=== PATIENT | female | born 1960 | race African-American/Black ===

== ENCOUNTER 2018-05-25 09:16 | Inpatient (IN) | payer MEDICARE, OTHER ==
[~2018-05-25] VITALS: Ht 170.2 cm; Wt 126.2 kg
[~2018-05-25 09:16] MED LIST: ADV500 IH; ALBU8.5H8 IH; AMIT50TA3 PO; ASPI-989 PO; ATOR40TA28 PO; FLUT16H NASAL; FURO80 PO; INSLAN SQ; INSU100I15 SQ; ISOS30TA6 PO; KDUR20 PO; LIDOP TD; LOSA25TA41 PO; METF-960 PO; METH-372 PO; NITR.4 BU; PRAS10TA6 PO; PROM25 PO; SULF-168 PO; TIOT185 IH; [UNRECOGNIZED DRUG - CODE] VG
[2018-05-25] MEDS ORDERED: SODIUM CHLORIDE 0.9% 100 ML ONE ×2 (10:10→14:32)
[2018-05-25] MEDS ORDERED: IOVERSOL 350 MG/ML 150 ML VIAL ONE ×2 (10:10→14:31)
[2018-05-25 10:17] LABS: GLUCOSE,POINT OF CARE 477 MG/DL (70-110)
[2018-05-25 11:32] LABS: BASOPHILS % (AUTO) 0.4 % (0.0-2.0); EOSINOPHILS % (AUTO) 0.8 % (1.0-6.0); HEMATOCRIT 35.9 % (36-46); HEMOGLOBIN 11.6 g/dL (12.0-16.0); LYMPHOCYTES # (AUTO) 2.6 K/uL (1.0-4.8); LYMPHOCYTES % (AUTO) 26.7 % (22.0-44.0); MEAN CORPUSCULAR HEMOGLOBIN 22.3 pg (26.0-34.0); MEAN CORPUSCULAR HGB CONC 32.3 G/dL (31.0-37.0); MEAN CORPUSCULAR VOLUME 69 fL (80-100); MONOCYTES # (AUTO) 0.4 K/uL (0.1-1.0); MONOCYTES % (AUTO) 4.5 % (2.0-9.0); NEUTROPHILS # (AUTO) 6.6 K/uL (1.8-7.7); NEUTROPHILS % (AUTO) 67.6 % (40.0-70.0); PLATELET COUNT (AUTO) 284 K/uL (150-450); RED BLOOD CELL COUNT(AUTO) 5.19 MIL/uL (4.00-5.20); RED CELL DISTRIBUTION WIDTH 20.6 % (11.5-14.5)
[2018-05-25 11:47] LABS: INR 0.9 (0.9-1.1); PROTHROMBIN TIME 9.7 SEC (9.4-11.6)
[2018-05-25 11:59] LABS: B-TYPE NATRIURETIC PEPTIDE 10 pg/mL (0-100)
[2018-05-25 12:19] LABS: ALANINE AMINOTRANSFERASE 22 U/L (12-78); ALKALINE PHOSPHATASE 168 U/L (46-116); ANION GAP 11 mmol/L (8-16); ASPARTATE AMINOTRANSFERASE 16 U/L (15-37); BILIRUBIN,TOTAL 0.3 mg/dL (0.1-1.0); CALCIUM, TOTAL 9.8 mg/dL (8.8-10.5); CARBON DIOXIDE 24 mmol/L (22-29); CHLORIDE 100 mmol/L (98-107); CREATINE KINASE, TOTAL ONLY 66 U/L (26-192); CREATININE 1.05 mg/dL (0.60-1.30); GLOMERULAR FILTR. RATE CALC > 60 mL/min (>60); POTASSIUM 4.6 mmol/L (3.5-5.1); SODIUM SERUM 135 mmol/L (136-145); TOTAL PROTEIN, SERUM 7.5 g/dL (6.4-8.2); UREA NITROGEN, BLOOD 16 mg/dL (7-18)
[2018-05-25 12:23] LABS: GLUCOSE,RANDOM 452 mg/dL (70-110)
[2018-05-25] MEDS ORDERED: INSULIN REGULAR, HUMAN 100 UNITS/ML IVP ONE (12:45)
[2018-05-25] MEDS ORDERED: SODIUM CHLORIDE 0.9% 1,000 ML IV ONE (12:45)
[2018-05-25] MEDS ORDERED: 0.9% SODIUM CHLORIDE 10 ML SYRINGE IVP PRN (13:45)
[2018-05-25] MEDS ORDERED: INSULIN REGULAR, HUMAN 100 UNITS/ML SQ ONE (13:45)
[2018-05-25] MEDS ORDERED: ACETAMINOPHEN 325 MG TABLET PO PRN ×2 (13:45→15:45)
[2018-05-25] MEDS ORDERED: ONDANSETRON HCL 4 MG/2 ML VIAL IVP PRN ×2 (13:45→15:45)
[2018-05-25] MEDS ORDERED: ZOLPIDEM TARTRATE 5 MG TABLET PO PRN (15:45)
[2018-05-25] MEDS ORDERED: DEXTROSE 50%-WATER 25 GM/50 ML SYRINGE IVP PRN (15:45)
[2018-05-25] MEDS ORDERED: BISACODYL 10 MG RECTAL RECTAL SUPPOSITORY PR PRN (15:45)
[2018-05-25] MEDS ORDERED: MAGNESIUM HYDROXIDE SUSPENSION 30 ML UDCUP PO PRN (15:45)
[2018-05-25 15:50] LABS: GLUCOSE,POINT OF CARE 366 MG/DL (70-110)
[2018-05-25 15:50] LABS: GLUCOSE,POINT OF CARE 301 MG/DL (70-110)
[2018-05-25] MEDS ORDERED: ALBUTEROL SULFATE 2.5 MG/0.5 ML NEB SOLUTION NEB PRN (16:00)
[2018-05-25] MEDS ORDERED: IPRATROPIUM BROMIDE 0.5 MG/2.5 ML NEB SOLUTION NEB PRN (16:00)
[2018-05-25 16:13] LABS: BASOPHILS % (AUTO) 0.3 % (0.0-2.0); EOSINOPHILS % (AUTO) 1.5 % (1.0-6.0); HEMATOCRIT 34.4 % (36-46); HEMOGLOBIN 10.8 g/dL (12.0-16.0); LYMPHOCYTES # (AUTO) 2.6 K/uL (1.0-4.8); LYMPHOCYTES % (AUTO) 30.9 % (22.0-44.0); MEAN CORPUSCULAR HEMOGLOBIN 21.5 pg (26.0-34.0); MEAN CORPUSCULAR HGB CONC 31.5 G/dL (31.0-37.0); MEAN CORPUSCULAR VOLUME 68 fL (80-100); MONOCYTES # (AUTO) 0.4 K/uL (0.1-1.0); MONOCYTES % (AUTO) 5.2 % (2.0-9.0); NEUTROPHILS # (AUTO) 5.3 K/uL (1.8-7.7); NEUTROPHILS % (AUTO) 62.1 % (40.0-70.0); PLATELET COUNT (AUTO) 294 K/uL (150-450); RED BLOOD CELL COUNT(AUTO) 5.05 MIL/uL (4.00-5.20); RED CELL DISTRIBUTION WIDTH 20.2 % (11.5-14.5)
[2018-05-25 16:37] LABS: PLATELET MORPHOLOGY COMMENT NORMAL
[2018-05-25 17:30] LABS: GLUCOSE,POINT OF CARE 251 MG/DL (70-110)
[2018-05-25 18:07] VITALS: BP 122/59
[2018-05-25] MEDS: INSULIN LISPRO 100 UNITS/ML SQ PRN ×2 (18:09→23:22)
[2018-05-25 19:25] VITALS: BP 146/77
[2018-05-25] MEDS: DOCUSATE SODIUM 100 MG CAPSULE PO SCH (20:09)
[2018-05-25] MEDS: FUROSEMIDE 80 MG TABLET PO SCH (20:09)
[2018-05-25] MEDS: FAMOTIDINE 20 MG TABLET PO SCH (20:09)
[2018-05-25] MEDS: AMITRIPTYLINE HCL 50 MG TABLET PO SCH (20:09)
[2018-05-25] MEDS ORDERED: INSULIN GLARGINE,HUM.REC.ANLOG 100 UNITS/ML SQ SCH (21:00)
[2018-05-25] MEDS ORDERED: ENOXAPARIN SODIUM 80 MG/0.8 ML PF SYRINGE SQ SCH ×2 (21:00)
[2018-05-25] MEDS ORDERED: HEPARIN SODIUM 25000 UNITS/D5W 250 ML IV PRN (21:38)
[2018-05-25] MEDS ORDERED: HEPARIN SODIUM,PORCINE 5,000 UNITS/ML VIAL IVP PRN ×2 (21:45)
[2018-05-25] MEDS ORDERED: DiphenhydrAMINE HCL 50 MG/ML VIAL IVP ONE (21:45)
[2018-05-25] MEDS: OxyCODONE HCL/ACETAMINOPHEN 5-325 MG TABLET PO PRN (23:20)
[2018-05-25 23:52] VITALS: BP 127/56
[2018-05-26 02:49] LABS: GLUCOMETER DEV NAME(LOC) 5S.1; GLUCOSE,POINT OF CARE 491 MG/DL (70-110)
[2018-05-26 04:02] VITALS: BP 133/73
[2018-05-26] MEDS ORDERED: INSULIN LISPRO 100 UNITS/ML SQ ONE (06:15)
[2018-05-26] MEDS ORDERED: DEXTROSE 50%-WATER 25 GM/50 ML SYRINGE IVP PRN (06:15)
[2018-05-26 06:32] LABS: BASOPHILS % (AUTO) 1.1 % (0.0-2.0); EOSINOPHILS % (AUTO) 1.7 % (1.0-6.0); HEMATOCRIT 34.6 % (36-46); HEMOGLOBIN 10.9 g/dL (12.0-16.0); LYMPHOCYTES # (AUTO) 2.2 K/uL (1.0-4.8); LYMPHOCYTES % (AUTO) 30.3 % (22.0-44.0); MEAN CORPUSCULAR HEMOGLOBIN 21.5 pg (26.0-34.0); MEAN CORPUSCULAR HGB CONC 31.3 G/dL (31.0-37.0); MEAN CORPUSCULAR VOLUME 69 fL (80-100); MONOCYTES # (AUTO) 0.3 K/uL (0.1-1.0); MONOCYTES % (AUTO) 4.4 % (2.0-9.0); NEUTROPHILS # (AUTO) 4.6 K/uL (1.8-7.7); NEUTROPHILS % (AUTO) 62.5 % (40.0-70.0); PLATELET COUNT (AUTO) 295 K/uL (150-450); RED BLOOD CELL COUNT(AUTO) 5.06 MIL/uL (4.00-5.20); RED CELL DISTRIBUTION WIDTH 20.1 % (11.5-14.5)
[2018-05-26 07:24] LABS: ALANINE AMINOTRANSFERASE 24 U/L (12-78); ALBUMIN 2.9 g/dL (3.4-5.0); ALKALINE PHOSPHATASE 164 U/L (46-116); ANION GAP 8 mmol/L (8-16); ASPARTATE AMINOTRANSFERASE 19 U/L (15-37); BILIRUBIN,TOTAL 0.3 mg/dL (0.1-1.0); CALCIUM, TOTAL 9.1 mg/dL (8.8-10.5); CARBON DIOXIDE 27 mmol/L (22-29); CHLORIDE 97 mmol/L (98-107); GLOMERULAR FILTR. RATE CALC > 60 mL/min (>60); POTASSIUM 3.9 mmol/L (3.5-5.1); SODIUM SERUM 132 mmol/L (136-145); TOTAL PROTEIN, SERUM 7.1 g/dL (6.4-8.2); UREA NITROGEN, BLOOD 15 mg/dL (7-18)
[2018-05-26 07:31] LABS: GLUCOSE,RANDOM 475 mg/dL (70-110)
[2018-05-26 07:54] VITALS: BP 117/60
[2018-05-26 07:55] LABS: GLUCOMETER DEV NAME(LOC) 5S.1; GLUCOSE,POINT OF CARE 478 MG/DL (70-110)
[2018-05-26] MEDS: FUROSEMIDE 80 MG TABLET PO SCH ×2 (08:13→21:50)
[2018-05-26] MEDS: DOCUSATE SODIUM 100 MG CAPSULE PO SCH ×2 (08:13→21:50)
[2018-05-26] MEDS: ISOSORBIDE MONONITRATE 30 MG ER TABLET PO SCH (08:13)
[2018-05-26] MEDS: AMITRIPTYLINE HCL 50 MG TABLET PO SCH ×2 (08:13→21:50)
[2018-05-26] MEDS: ASPIRIN 325 MG TABLET PO SCH (08:13)
[2018-05-26] MEDS: ATORVASTATIN CALCIUM 40 MG TABLET PO SCH (08:13)
[2018-05-26] MEDS: OxyCODONE HCL/ACETAMINOPHEN 5-325 MG TABLET PO PRN ×2 (08:13→17:05)
[2018-05-26] MEDS: FAMOTIDINE 20 MG TABLET PO SCH ×2 (08:14→21:50)
[2018-05-26] MEDS: PRASUGREL HCL 10 MG TABLET PO SCH (08:14)
[2018-05-26] MEDS: LOSARTAN POTASSIUM 25 MG TABLET PO SCH (08:14)
[2018-05-26 11:24] VITALS: BP 110/54
[2018-05-26] MEDS: INSULIN LISPRO 100 UNITS/ML SQ PRN ×3 (11:38→21:52)
[2018-05-26] MEDS: APIXABAN 5 MG TABLET PO SCH ×2 (12:05→21:50)
[2018-05-26 14:19] LABS: GLUCOMETER DEV NAME(LOC) 5S.1; GLUCOSE,POINT OF CARE 431 MG/DL (70-110)
[2018-05-26 16:04] VITALS: BP 118/68
[2018-05-26 20:29] LABS: GLUCOMETER DEV NAME(LOC) 5S.1; GLUCOSE,POINT OF CARE 474 MG/DL (70-110)
[2018-05-26 20:36] VITALS: BP 119/65
[2018-05-26] MEDS: INSULIN GLARGINE,HUM.REC.ANLOG 100 UNITS/ML SQ SCH (21:51)
[2018-05-26 22:38] LABS: GLUCOMETER DEV NAME(LOC) 5S.2; GLUCOSE,POINT OF CARE 420 MG/DL (70-110)
[2018-05-27 00:08] VITALS: BP 124/69
[2018-05-27] MEDS: OxyCODONE HCL/ACETAMINOPHEN 5-325 MG TABLET PO PRN ×3 (01:06→16:24)
[2018-05-27 04:06] VITALS: BP 109/67
[2018-05-27] MEDS: INSULIN LISPRO 100 UNITS/ML SQ PRN (05:57)
[2018-05-27 07:47] VITALS: BP 125/72
[2018-05-27 07:59] LABS: GLUCOMETER DEV NAME(LOC) 5S.2; GLUCOSE,POINT OF CARE 370 MG/DL (70-110)
[2018-05-27] MEDS: ATORVASTATIN CALCIUM 40 MG TABLET PO SCH (08:23)
[2018-05-27] MEDS: APIXABAN 5 MG TABLET PO SCH ×2 (08:24→20:19)
[2018-05-27] MEDS: FAMOTIDINE 20 MG TABLET PO SCH ×2 (08:24→20:19)
[2018-05-27] MEDS: AMITRIPTYLINE HCL 50 MG TABLET PO SCH ×2 (08:24→20:19)
[2018-05-27] MEDS: ISOSORBIDE MONONITRATE 30 MG ER TABLET PO SCH (08:24)
[2018-05-27] MEDS: LOSARTAN POTASSIUM 25 MG TABLET PO SCH (08:24)
[2018-05-27] MEDS: PRASUGREL HCL 10 MG TABLET PO SCH (08:24)
[2018-05-27] MEDS: FUROSEMIDE 80 MG TABLET PO SCH ×2 (08:25→20:19)
[2018-05-27] MEDS: DOCUSATE SODIUM 100 MG CAPSULE PO SCH ×2 (08:25→20:19)
[2018-05-27] MEDS: ASPIRIN 325 MG TABLET PO SCH (08:26)
[2018-05-27] MEDS: INSULIN GLARGINE,HUM.REC.ANLOG 100 UNITS/ML SQ SCH (08:31)
[2018-05-27 11:59] VITALS: BP 102/64
[2018-05-27] MEDS ORDERED: MetFORMIN HCL 500 MG TABLET PO SCH (12:00)
[2018-05-27] MEDS ORDERED: INSULIN LISPRO 100 UNITS/ML SQ ONE ×4 (12:00→18:00)
[2018-05-27] MEDS ORDERED: APIX5TAB PO (12:19)
[2018-05-27 15:31] VITALS: BP 100/57
[2018-05-27 16:39] LABS: GLUCOMETER DEV NAME(LOC) 5S.1; GLUCOSE,POINT OF CARE 485 MG/DL (70-110)
[2018-05-27 16:39] LABS: GLUCOMETER DEV NAME(LOC) 5S.2; GLUCOSE,POINT OF CARE 413 MG/DL (70-110)
[2018-05-27 18:53] LABS: GLUCOMETER DEV NAME(LOC) 5S.1; GLUCOSE,POINT OF CARE 376 MG/DL (70-110)
[2018-05-27 19:33] VITALS: BP 106/59
[2018-05-27] MEDS: INSULIN LISPRO 100 UNITS/ML SQ SCH (20:35)
[2018-05-27] MEDS ORDERED: INSULIN GLARGINE,HUM.REC.ANLOG 100 UNITS/ML SQ SCH (21:00)
[2018-05-27] MEDS ORDERED: INSULIN LISPRO 100 UNITS/ML SQ SCH (21:00)
[2018-05-28 00:06] VITALS: BP 121/67
[2018-05-28] MEDS: OxyCODONE HCL/ACETAMINOPHEN 5-325 MG TABLET PO PRN ×2 (00:27→08:31)
[2018-05-28 02:09] LABS: GLUCOMETER DEV NAME(LOC) 5S.1; GLUCOSE,POINT OF CARE 365 MG/DL (70-110)
[2018-05-28 04:31] VITALS: BP 100/53
[2018-05-28] MEDS: INSULIN LISPRO 100 UNITS/ML SQ SCH ×2 (06:07→11:45)
[2018-05-28 06:35] LABS: GLUCOMETER DEV NAME(LOC) 5S.2; GLUCOSE,POINT OF CARE 203 MG/DL (70-110)
[2018-05-28 07:26] VITALS: BP 118/57
[2018-05-28] MEDS: AMITRIPTYLINE HCL 50 MG TABLET PO SCH (08:31)
[2018-05-28] MEDS: ASPIRIN 325 MG TABLET PO SCH (08:31)
[2018-05-28] MEDS: ISOSORBIDE MONONITRATE 30 MG ER TABLET PO SCH (08:31)
[2018-05-28] MEDS: APIXABAN 5 MG TABLET PO SCH (08:31)
[2018-05-28] MEDS: ATORVASTATIN CALCIUM 40 MG TABLET PO SCH (08:32)
[2018-05-28] MEDS: LOSARTAN POTASSIUM 25 MG TABLET PO SCH (08:32)
[2018-05-28] MEDS: DOCUSATE SODIUM 100 MG CAPSULE PO SCH (08:32)
[2018-05-28] MEDS: PRASUGREL HCL 10 MG TABLET PO SCH (08:32)
[2018-05-28] MEDS: FAMOTIDINE 20 MG TABLET PO SCH (08:32)
[2018-05-28] MEDS: FUROSEMIDE 80 MG TABLET PO SCH (08:32)
[2018-05-28 11:24] VITALS: BP 111/63
[2018-05-28 16:19] VITALS: BP 117/68
[2018-05-28 18:04] LABS: GLUCOMETER DEV NAME(LOC) 5S.1; GLUCOSE,POINT OF CARE 285 MG/DL (70-110)
[2018-05-28 18:04] LABS: GLUCOMETER DEV NAME(LOC) 5S.1; GLUCOSE,POINT OF CARE 200 MG/DL (70-110)
[2018-06-02] MEDS ORDERED: APIXABAN 5 MG TABLET PO SCH (09:00)
== END 2018-05-28 17:00 | disposition home or self-care (01) | DRG 637 ==
LOC: EMS 09:17 → 5S 15:35
PROVIDERS: ADMIT Hospitalist; ATTEND Hospitalist
DX: E11.65 Type 2 diabetes mellitus with hyperglycemia (principal); I26.99 Other pulmonary embolism without acute cor pulmonale; J44.1 Chronic obstructive pulmonary disease with (acute) exacerbation; Z68.41 Body mass index [BMI] 40.0-44.9, adult; E66.9 Obesity, unspecified; I11.0 Hypertensive heart disease with heart failure; I50.9 Heart failure, unspecified; Z95.1 Presence of aortocoronary bypass graft; I25.10 Atherosclerotic heart disease of native coronary artery without angina pectoris; E11.51 Type 2 diabetes mellitus with diabetic peripheral angiopathy without gangrene; D64.9 Anemia, unspecified; D47.3 Essential (hemorrhagic) thrombocythemia; Z88.5 Allergy status to narcotic agent; Z88.8 Allergy status to other drugs, medicaments and biological substances; E78.5 Hyperlipidemia, unspecified; Z82.49 Family history of ischemic heart disease and other diseases of the circulatory system; Z87.891 Personal history of nicotine dependence; Z89.421 Acquired absence of other right toe(s); Z95.5 Presence of coronary angioplasty implant and graft; Z79.4 Long term (current) use of insulin; Z79.899 Other long term (current) drug therapy
CPT/HCPCS: 71275; 93005; 93970; 94640; 96374; G0378; J1200; J1644; J1650; J1815; J7030; J7050

== ENCOUNTER 2018-06-29 10:40 | Emergency (ER) | payer MEDICARE ==
[~2018-06-29] VITALS: Ht 170.2 cm; Wt 127.3 kg
[~2018-06-29 10:40] MED LIST changes: +APIX5TAB PO; -SULF-168 PO; -[UNRECOGNIZED DRUG - CODE] VG
[2018-06-29 13:53] LABS: BAND NEUTROPHILS % (MANUAL) 0 % (0-5)
[2018-06-29 14:05] LABS: HEMOGLOBIN 10.2 g/dL (12.0-16.0); MEAN CORPUSCULAR HEMOGLOBIN 20.7 pg (26.0-34.0); MEAN CORPUSCULAR HGB CONC 31.1 G/dL (31.0-37.0); MEAN CORPUSCULAR VOLUME 67 fL (80-100); PLATELET COUNT (AUTO) 450 K/uL (150-450); RED BLOOD CELL COUNT(AUTO) 4.96 MIL/uL (4.00-5.20); RED CELL DISTRIBUTION WIDTH 20.1 % (11.5-14.5)
[2018-06-29 14:13] LABS: ALANINE AMINOTRANSFERASE 18 U/L (12-78); ALBUMIN 3.1 g/dL (3.4-5.0); ALKALINE PHOSPHATASE 184 U/L (46-116); ANION GAP 9 mmol/L (8-16); ASPARTATE AMINOTRANSFERASE 20 U/L (15-37); BILIRUBIN,TOTAL 0.3 mg/dL (0.1-1.0); CALCIUM, TOTAL 9.6 mg/dL (8.8-10.5); CARBON DIOXIDE 25 mmol/L (22-29); CHLORIDE 103 mmol/L (98-107); CREATININE 0.75 mg/dL (0.60-1.30); GLOMERULAR FILTR. RATE CALC > 60 mL/min (>60); POTASSIUM 3.1 mmol/L (3.5-5.1); SODIUM SERUM 137 mmol/L (136-145); TOTAL PROTEIN, SERUM 7.7 g/dL (6.4-8.2); UREA NITROGEN, BLOOD 9 mg/dL (7-18)
[2018-06-29 14:18] LABS: GLUCOSE,RANDOM 48 mg/dL (70-110)
[2018-06-29] MEDS ORDERED: POTASSIUM CHLORIDE 20 MEQ ER TABLET PO ONE (14:30)
[2018-06-29] MEDS ORDERED: MORPHINE SULFATE 10 MG/ML SYRINGE IM ONE (14:30)
[2018-06-29 14:40] LABS: EOSINOPHILS % (MANUAL) 1 % (1-6); LYMPHOCYTES % (MANUAL) 35 % (22-44); MONOCYTES % (MANUAL) 5 % (2-9); SEGMENTED NEUTROPHILS % 59 % (40-70)
[2018-06-29 15:14] LABS: GLUCOSE,POINT OF CARE 63 MG/DL (70-110)
[2018-06-29 16:19] LABS: GLUCOSE,POINT OF CARE 140 MG/DL (70-110)
[2018-06-29 16:40] VITALS: BP 136/86
== END 2018-06-29 16:41 | disposition home or self-care (01) ==
LOC: EMS 10:40
DX: L03.115 Cellulitis of right lower limb (principal); E11.649 Type 2 diabetes mellitus with hypoglycemia without coma; I11.0 Hypertensive heart disease with heart failure; I50.9 Heart failure, unspecified; J44.9 Chronic obstructive pulmonary disease, unspecified; I25.10 Atherosclerotic heart disease of native coronary artery without angina pectoris; E66.01 Morbid (severe) obesity due to excess calories; Z87.891 Personal history of nicotine dependence; Z95.1 Presence of aortocoronary bypass graft; Z79.4 Long term (current) use of insulin; Z79.82 Long term (current) use of aspirin; Z88.1 Allergy status to other antibiotic agents; Z88.5 Allergy status to narcotic agent; Z79.899 Other long term (current) drug therapy; Z68.41 Body mass index [BMI] 40.0-44.9, adult
CPT/HCPCS: 36415; 73630; 80053; 82962; 83605; 85007; 85027; 85610; 85730; 87040; 93970; 96372; 99284; J2270

== ENCOUNTER 2018-07-14 16:36 | Inpatient (IN) | payer MEDICARE, MEDICAID ==
[~2018-07-14] VITALS: Ht 170.2 cm; Wt 125.8 kg
[~2018-07-14 16:36] MED LIST changes: -APIX5TAB PO; -METF-960 PO; -METH-372 PO
[2018-07-14 17:40] LABS: BASOPHILS % (AUTO) 1.3 % (0.0-2.0); EOSINOPHILS % (AUTO) 1.4 % (1.0-6.0); HEMATOCRIT 29.8 % (36-46); HEMOGLOBIN 9.3 g/dL (12.0-16.0); LYMPHOCYTES # (AUTO) 2.3 K/uL (1.0-4.8); LYMPHOCYTES % (AUTO) 21.2 % (22.0-44.0); MEAN CORPUSCULAR HGB CONC 31.2 G/dL (31.0-37.0); MEAN CORPUSCULAR VOLUME 64 fL (80-100); MONOCYTES # (AUTO) 0.6 K/uL (0.1-1.0); MONOCYTES % (AUTO) 5.7 % (2.0-9.0); NEUTROPHILS # (AUTO) 7.8 K/uL (1.8-7.7); NEUTROPHILS % (AUTO) 70.4 % (40.0-70.0); PLATELET COUNT (AUTO) 531 K/uL (150-450); RED BLOOD CELL COUNT(AUTO) 4.64 MIL/uL (4.00-5.20)
[2018-07-14 18:02] LABS: ANION GAP 12 mmol/L (8-16); CALCIUM, TOTAL 9.4 mg/dL (8.8-10.5); CARBON DIOXIDE 23 mmol/L (22-29); CHLORIDE 102 mmol/L (98-107); CREATININE 0.88 mg/dL (0.60-1.30); GLOMERULAR FILTR. RATE CALC > 60 mL/min (>60); GLUCOSE,RANDOM 196 mg/dL (70-110); POTASSIUM 4.5 mmol/L (3.5-5.1); SODIUM SERUM 137 mmol/L (136-145); UREA NITROGEN, BLOOD 5 mg/dL (7-18)
[2018-07-14 18:17] LABS: ALANINE AMINOTRANSFERASE 19 U/L (12-78); ALBUMIN 2.8 g/dL (3.4-5.0); ALKALINE PHOSPHATASE 171 U/L (46-116); ASPARTATE AMINOTRANSFERASE 22 U/L (15-37); BILIRUBIN,TOTAL 0.3 mg/dL (0.1-1.0)
[2018-07-14] MEDS ORDERED: ONDANSETRON HCL 4 MG TABLET PO ONE (20:30)
[2018-07-14] MEDS ORDERED: LORazepam 2 MG/ML VIAL IVP ONE (21:30)
[2018-07-14] MEDS ORDERED: SODIUM CHLORIDE 0.9% 1,000 ML IV ONE (21:30)
[2018-07-14 21:59] LABS: INFLUENZA TYPE A NEGATIVE FOR TYPE A (NEGATIVE); INFLUENZA TYPE B NEGATIVE FOR TYPE B (NEGATIVE)
[2018-07-14] MEDS ORDERED: IOVERSOL 350 MG/ML 100 ML VIAL ONE (21:59)
[2018-07-14] MEDS ORDERED: SODIUM CHLORIDE 0.9% 100 ML ONE (21:59)
[2018-07-15] MEDS ORDERED: APIXABAN 5 MG TABLET PO ONE
[2018-07-15] MEDS ORDERED: ONDANSETRON HCL 4 MG/2 ML VIAL IVP ONE
[2018-07-15] MEDS ORDERED: LORazepam 2 MG/ML VIAL IVP ONE
[2018-07-15] MEDS ORDERED: AZITHROMYCIN 500 MG/NS 250 ML IV ONE
[2018-07-15] MEDS ORDERED: CefTRIAXone 1 GM/DEXTROSE 50 ML IV ONE
[2018-07-15] MEDS ORDERED: 0.9% SODIUM CHLORIDE 10 ML SYRINGE IVP PRN ×2 (00:15→08:15)
[2018-07-15] MEDS ORDERED: ONDANSETRON HCL 4 MG/2 ML VIAL IVP PRN ×2 (00:15→08:15)
[2018-07-15] MEDS ORDERED: ACETAMINOPHEN 325 MG TABLET PO PRN ×2 (00:15→08:15)
[2018-07-15] MEDS ORDERED: SODIUM CHLORIDE 0.9% 1,000 ML IV ONE (00:15)
[2018-07-15 02:20] VITALS: BP 158/97
[2018-07-15 06:05] LABS: GLUCOMETER DEV NAME(LOC) 5S.1; GLUCOSE,POINT OF CARE 277 MG/DL (70-110)
[2018-07-15 07:21] VITALS: BP 168/76
[2018-07-15] MEDS ORDERED: ALBUTEROL SULFATE 2.5 MG/0.5 ML NEB SOLUTION NEB SCH ×2 (08:00→14:00)
[2018-07-15] MEDS ORDERED: IPRATROPIUM BROMIDE 0.5 MG/2.5 ML NEB SOLUTION NEB SCH ×2 (08:00→14:00)
[2018-07-15] MEDS ORDERED: ZOLPIDEM TARTRATE 5 MG TABLET PO PRN (08:15)
[2018-07-15] MEDS ORDERED: GLUCAGON,HUMAN RECOMBINANT 1 MG VIAL IM PRN (08:15)
[2018-07-15] MEDS ORDERED: PROMETHAZINE HCL 25 MG TABLET PO PRN (08:15)
[2018-07-15] MEDS ORDERED: IPRATROPIUM BROMIDE 0.5 MG/2.5 ML NEB SOLUTION NEB PRN (08:15)
[2018-07-15] MEDS ORDERED: ALBUTEROL SULFATE 2.5 MG/0.5 ML NEB SOLUTION NEB PRN (08:15)
[2018-07-15] MEDS ORDERED: DEXTROSE 50%-WATER 25 GM/50 ML SYG IVP PRN (08:15)
[2018-07-15] MEDS ORDERED: INSULIN LISPRO 100 UNITS/ML SQ PRN ×2 (08:15)
[2018-07-15] MEDS ORDERED: PANTOPRAZOLE SODIUM 40 MG/VIAL IVP SCH (09:00)
[2018-07-15] MEDS ORDERED: ENOXAPARIN SODIUM 60 MG/0.6 ML PF SYRINGE SQ SCH (09:00)
[2018-07-15] MEDS ORDERED: ATORVASTATIN CALCIUM 40 MG TABLET PO SCH (09:00)
[2018-07-15] MEDS ORDERED: ISOSORBIDE MONONITRATE 30 MG ER TABLET PO SCH (09:00)
[2018-07-15] MEDS ORDERED: PRASUGREL HCL 10 MG TABLET PO SCH (09:00)
[2018-07-15] MEDS ORDERED: LOSARTAN POTASSIUM 25 MG TABLET PO SCH (09:00)
[2018-07-15] MEDS ORDERED: DOCUSATE SODIUM 100 MG CAPSULE PO SCH (09:00)
[2018-07-15] MEDS ORDERED: AMITRIPTYLINE HCL 75 MG TABLET PO SCH (09:00)
[2018-07-15] MEDS ORDERED: FUROSEMIDE 80 MG TABLET PO SCH (09:00)
[2018-07-15 11:40] VITALS: BP 151/78
[2018-07-15 12:11] LABS: GLUCOMETER DEV NAME(LOC) 5S.1; GLUCOSE,POINT OF CARE 312 MG/DL (70-110)
[2018-07-15] MEDS ORDERED: AZITH500IV IV (13:18)
[2018-07-15] MEDS ORDERED: CEFX1I IV (13:18)
[2018-07-15] MEDS ORDERED: CEFX1I IM (13:18)
[2018-07-15] MEDS ORDERED: DSS100 PO (13:19)
[2018-07-15] MEDS ORDERED: ACET-2247 PO (13:21)
[2018-07-15] MEDS ORDERED: AUD NEB ×2 (13:22→13:30)
[2018-07-15] MEDS ORDERED: INSU100V SQ (13:23)
[2018-07-15] MEDS ORDERED: IPRNEB NEB ×2 (13:24→13:36)
[2018-07-15] MEDS ORDERED: ONDA220I IVP (13:26)
[2018-07-15] MEDS ORDERED: ZOLP5 PO (13:26)
[2018-07-15] MEDS ORDERED: A20IH1 IH (13:34)
[2018-07-15] MEDS ORDERED: PANT40VI IVP (13:40)
[2018-07-15 17:40] LABS: GLUCOMETER DEV NAME(LOC) 5N.1; GLUCOSE,POINT OF CARE 311 MG/DL (70-110)
[2018-07-15] MEDS ORDERED: INSULIN GLARGINE,HUM.REC.ANLOG 100 UNITS/ML SQ SCH (21:00)
[2018-07-16] MEDS ORDERED: CefTRIAXone 1 GM/DEXTROSE 50 ML IV SCH
[2018-07-16] MEDS ORDERED: AZITHROMYCIN 500 MG/NS 250 ML IV SCH (04:00)
== END 2018-07-15 14:10 | disposition short-term general hospital (02) | DRG 175 ==
LOC: EMS 16:37 → 5S 07-15 00:09
PROVIDERS: ADMIT Internal Medicine; ATTEND Internal Medicine
DX: I26.99 Other pulmonary embolism without acute cor pulmonale (principal); J18.9 Pneumonia, unspecified organism; J44.0 Chronic obstructive pulmonary disease with (acute) lower respiratory infection; E11.9 Type 2 diabetes mellitus without complications; E78.5 Hyperlipidemia, unspecified; I11.0 Hypertensive heart disease with heart failure; I50.9 Heart failure, unspecified; Z82.49 Family history of ischemic heart disease and other diseases of the circulatory system; Z83.3 Family history of diabetes mellitus; Z87.891 Personal history of nicotine dependence; Z95.5 Presence of coronary angioplasty implant and graft; Z79.4 Long term (current) use of insulin; Z79.82 Long term (current) use of aspirin; Z79.899 Other long term (current) drug therapy; Z90.49 Acquired absence of other specified parts of digestive tract
CPT/HCPCS: 71275; 83605; 87040; 87070; 87205; 87804; 93005; 94640; 96374; 96375; 96376; C9113; G0378; J0456; J0696; J1650; J1815; J2060; J2405; J7030; J7050; Q0162

== ENCOUNTER 2018-12-26 20:09 | Emergency (ER) | payer BC, MEDICAID ==
[~2018-12-26] VITALS: Ht 170.2 cm; Wt 121.4 kg
[~2018-12-26 20:09] MED LIST changes: +ACET-2247 PO; -ADV500 IH; -ALBU8.5H8 IH; -ASPI-989 PO; +AUD NEB; +AZITH500IV IV; +CEFX1I IV; +DSS100 PO; -FLUT16H NASAL; -INSU100I15 SQ; +INSU100V SQ; +IPRNEB NEB; -KDUR20 PO; -LIDOP TD; -NITR.4 BU; +ONDA220I IVP; +PANT40VI IVP; -TIOT185 IH; +ZOLP5 PO
[2018-12-26 21:16] LABS: BASOPHILS % (AUTO) 0.5 % (0.0-2.0); EOSINOPHILS % (AUTO) 1.5 % (1.0-6.0); HEMATOCRIT 31.2 % (36-46); HEMOGLOBIN 9.7 g/dL (12.0-16.0); LYMPHOCYTES # (AUTO) 3.5 K/uL (1.0-4.8); LYMPHOCYTES % (AUTO) 27.9 % (22.0-44.0); MEAN CORPUSCULAR HEMOGLOBIN 22.4 pg (26.0-34.0); MEAN CORPUSCULAR VOLUME 72 fL (80-100); MONOCYTES # (AUTO) 0.7 K/uL (0.1-1.0); MONOCYTES % (AUTO) 5.5 % (2.0-9.0); NEUTROPHILS # (AUTO) 8.1 K/uL (1.8-7.7); NEUTROPHILS % (AUTO) 64.6 % (40.0-70.0); PLATELET COUNT (AUTO) 451 K/uL (150-450); RED BLOOD CELL COUNT(AUTO) 4.32 MIL/uL (4.00-5.20); RED CELL DISTRIBUTION WIDTH 22.1 % (11.5-14.5)
[2018-12-26 21:20] LABS: CALCIUM, TOTAL 9.8 mg/dL (8.8-10.5); CREATININE 1.47 mg/dL (0.60-1.30); POTASSIUM 3.5 mmol/L (3.5-5.1)
[2018-12-26 21:22] LABS: INR 0.9 (0.9-1.1); PROTHROMBIN TIME 9.6 SEC (9.4-11.6)
[2018-12-26 21:23] LABS: BILIRUBIN,TOTAL 0.1 mg/dL (0.1-1.0); TOTAL PROTEIN, SERUM 7.3 g/dL (6.4-8.2)
[2018-12-26 23:58] VITALS: BP 122/69
== END 2018-12-27 01:50 | disposition short-term general hospital (02) ==
LOC: EMS 20:10
DX: R07.9 Chest pain, unspecified (principal); I11.0 Hypertensive heart disease with heart failure; I50.9 Heart failure, unspecified; I25.10 Atherosclerotic heart disease of native coronary artery without angina pectoris; J44.9 Chronic obstructive pulmonary disease, unspecified; E11.9 Type 2 diabetes mellitus without complications; Z88.5 Allergy status to narcotic agent; Z88.8 Allergy status to other drugs, medicaments and biological substances; Z79.4 Long term (current) use of insulin; Z79.899 Other long term (current) drug therapy; Z87.891 Personal history of nicotine dependence
CPT/HCPCS: 93005

== ENCOUNTER 2019-03-04 00:18 | Emergency (ER) | payer BC, MEDICAID, MEDICARE ==
[~2019-03-04] VITALS: Ht 170.2 cm; Wt 127.7 kg
[2019-03-04] MEDS ORDERED: APIX5TAB PO (00:36)
[2019-03-04] MEDS ORDERED: GABA-533 PO (00:36)
[2019-03-04] MEDS ORDERED: FURO80TA3 PO (00:36)
[2019-03-04] MEDS ORDERED: INSU3INS3 SQ (00:36)
[2019-03-04] MEDS ORDERED: AMIT75TA2 PO (00:36)
[2019-03-04] MEDS ORDERED: CLOP75TA32 PO (00:36)
[2019-03-04 02:06] VITALS: BP 127/73
== END 2019-03-04 02:44 | disposition home or self-care (01) ==
LOC: EMS 00:19
DX: T82.9XXA Unspecified complication of cardiac and vascular prosthetic device, implant and graft, initial encounter (principal); I11.0 Hypertensive heart disease with heart failure; I50.9 Heart failure, unspecified; J44.9 Chronic obstructive pulmonary disease, unspecified; E11.9 Type 2 diabetes mellitus without complications; F17.210 Nicotine dependence, cigarettes, uncomplicated; Z88.5 Allergy status to narcotic agent; Z88.8 Allergy status to other drugs, medicaments and biological substances; Z79.4 Long term (current) use of insulin

== ENCOUNTER 2021-01-17 00:41 | Emergency (ER) | payer MEDICARE, MEDICAID ==
[~2021-01-17] VITALS: Ht 170.2 cm; Wt 116.0 kg
[~2021-01-17 00:41] MED LIST changes: -AMIT50TA3 PO; +ASCO500 PO; -AUD NEB; -AZITH500IV IV; +BACTDSB PO; +BISA10SU11 PR; +CARV6 PO; -CEFX1I IV; +CEFX2I IV; -DSS100 PO; +FERR325T23 PO; -FURO80 PO; +GABA-533 PO; +HEPA500018 SQ; +HYDR-4723 PO; -IPRNEB NEB; -ISOS30TA6 PO; -LOSA25TA41 PO; +METH-386 PO; +MOM30 PO; -ONDA220I IVP; +PANT-31 PO; -PANT40VI IVP; -PRAS10TA6 PO; -PROM25 PO; -ZOLP5 PO
[2021-01-17] MEDS ORDERED: ACETAMINOPHEN 500 MG TABLET PO ONE (01:15)
[2021-01-17] MEDS ORDERED: CYCLOBENZAPRINE HCL 10 MG TABLET PO ONE (01:15)
[2021-01-17 02:15] LABS: BASOPHILS % (AUTO) 0.7 % (0.0-2.0); HEMATOCRIT 35.1 % (36-46); HEMOGLOBIN 11.3 g/dL (12.0-16.0); LYMPHOCYTES # (AUTO) 2.7 K/uL (1.0-4.8); LYMPHOCYTES % (AUTO) 31.8 % (22.0-44.0); MEAN CORPUSCULAR HGB CONC 32.4 G/dL (31.0-37.0); MEAN CORPUSCULAR VOLUME 80 fL (80-100); MONOCYTES # (AUTO) 0.7 K/uL (0.1-1.0); MONOCYTES % (AUTO) 7.7 % (2.0-9.0); NEUTROPHILS # (AUTO) 4.8 K/uL (1.8-7.7); NEUTROPHILS % (AUTO) 55.8 % (40.0-70.0); PLATELET COUNT (AUTO) 284 K/uL (150-450); RED BLOOD CELL COUNT(AUTO) 4.37 MIL/uL (4.00-5.20); RED CELL DISTRIBUTION WIDTH 16.9 % (11.5-14.5)
[2021-01-17 02:21] LABS: PROTHROMBIN TIME 10.9 SEC (9.4-11.6)
[2021-01-17] MEDS ORDERED: CefTRIAXone 1 GM/DEXTROSE 50 ML IV ONE (02:30)
[2021-01-17] MEDS ORDERED: AZITHROMYCIN 500 MG/NS 250 ML IV ONE (02:30)
[2021-01-17] MEDS ORDERED: MORPHINE SULFATE 4 MG/ML SYRINGE IVP ONE ×2 (03:15→08:15)
[2021-01-17 03:18] LABS: COVID AG,FIA SOURCE NASOPHARYNGEAL
[2021-01-17 03:26] LABS: APPEARANCE,URINE CLOUDY (CLEAR); BILIRUBIN,URINE NEGATIVE (NEGATIVE); GLUCOSE, URINE (UA) >=1000 mg/dL (NEGATIVE); KETONES,URINE NEGATIVE (NEGATIVE); LEUKOCYTE ESTERASE ,URINE MODERATE (NEGATIVE); NITRATE,URINE POSITIVE (NEGATIVE); OCCULT BLOOD,URINE LARGE (NEGATIVE); PH,URINE 5.5 (5.0-8.0); PROTEIN,URINE POS 1+ (NEGATIVE); UROBILINOGEN,URINE 0.2 mg/dL (<=1.0)
[2021-01-17 03:33] LABS: CALCIUM, TOTAL 9.5 mg/dL (8.8-10.5); CREATININE 1.69 mg/dL (0.60-1.30); POTASSIUM 5.4 mmol/L (3.5-5.1)
[2021-01-17 03:41] LABS: BACTERIA,URINE Many /HPF (None Seen); WBC,URINE >100 /HPF (0-5)
[2021-01-17] MEDS ORDERED: ONDANSETRON HCL 4 MG/2 ML VIAL IVP ONE (03:45)
[2021-01-17 03:57] LABS: ALBUMIN 3.7 g/dL (3.4-5.0); BILIRUBIN,TOTAL 0.2 mg/dL (0.1-1.0); TOTAL PROTEIN, SERUM 9.7 g/dL (6.4-8.2)
[2021-01-17] MEDS ORDERED: INSULIN REGULAR, HUMAN 100 UNITS/ML IVP ONE (04:00)
[2021-01-17] MEDS ORDERED: DEXTROSE 50%-WATER 25 GM/50 ML SYRINGE IVP ONE (04:00)
[2021-01-17] MEDS ORDERED: FUROSEMIDE 20 MG/2 ML VIAL IVP ONE (04:00)
[2021-01-17] MEDS ORDERED: DiphenhydrAMINE HCL 50 MG/ML VIAL IVP STA (05:33)
[2021-01-17] MEDS ORDERED: METOCLOPRAMIDE HCL 5 MG/ML 2 ML VIAL IVP ONE (05:45)
[2021-01-17] MEDS ORDERED: SODIUM CHLORIDE 0.9% 1,000 ML IV ONE (05:45)
[2021-01-17 06:00] LABS: GLUCOMETER DEV NAME(LOC) ERT.5; GLUCOSE,POINT OF CARE 261 MG/DL (70-110)
[2021-01-17 06:14] LABS: CALCIUM, TOTAL 8.8 mg/dL (8.8-10.5); CREATININE 1.55 mg/dL (0.60-1.30); POTASSIUM 4.4 mmol/L (3.5-5.1)
[2021-01-17 07:31] VITALS: BP 160/90
== END 2021-01-17 07:55 | disposition home or self-care (01) ==
LOC: EMS 00:41
DX: N17.9 Acute kidney failure, unspecified (principal); J18.9 Pneumonia, unspecified organism; Z20.822 Contact with and (suspected) exposure to COVID-19; N18.9 Chronic kidney disease, unspecified; N39.0 Urinary tract infection, site not specified; I11.0 Hypertensive heart disease with heart failure; I50.9 Heart failure, unspecified; I11.9 Hypertensive heart disease without heart failure; Z79.899 Other long term (current) drug therapy; Z88.8 Allergy status to other drugs, medicaments and biological substances
CPT/HCPCS: 36415; 71045; 74176; 80053; 81001; 82550; 82962; 83605; 83880; 84484; 85025; 85610; 85730; 87077; 87086; 87186; 87426; 93005; 96365; 96368; 96375; 96376; 99291; J0456; J0696; J1200; J1815; J1940; J2270; J2405; J2765; 80048; 82948

== ENCOUNTER 2023-12-07 03:50 | Emergency (ER) | payer MEDICARE, MEDICAID ==
[~2023-12-07] VITALS: Ht 165.1 cm; Wt 113.6 kg
[~2023-12-07 03:50] MED LIST changes: -BACTDSB PO; +CEFT2VIA60 IV; -CEFX2I IV; -GABA-533 PO; +GABA-534 PO; +HYDR-4062 PO; -HYDR-4723 PO; +MAGN-169 PO; -MOM30 PO
[2023-12-07] MEDS ORDERED: CLON-592 PO (03:57)
[2023-12-07] MEDS ORDERED: GABA-1181 PO (03:57)
[2023-12-07 04:10] VITALS: TEMP 98.2
[2023-12-07] MEDS: HYDROmorphone HCL 2 MG/ML SYRINGE IM ONE (04:35)
[2023-12-07] MEDS: ONDANSETRON HCL 4 MG/2 ML VIAL IM ONE (04:35)
[2023-12-07 05:06] LABS: BASOPHILS % (AUTO) 0.8 % (0.0-2.0); EOSINOPHILS % (AUTO) 1.8 % (1.0-6.0); HEMATOCRIT 33.9 % (36-46); HEMOGLOBIN 11.3 g/dL (12.0-16.0); LYMPHOCYTES # (AUTO) 3.3 K/uL (1.0-4.8); LYMPHOCYTES % (AUTO) 43.5 % (22.0-44.0); MEAN CORPUSCULAR HEMOGLOBIN 29.9 pg (26.0-34.0); MEAN CORPUSCULAR HGB CONC 33.2 G/dL (31.0-37.0); MEAN CORPUSCULAR VOLUME 90 fL (80-100); MONOCYTES # (AUTO) 0.5 K/uL (0.1-1.0); MONOCYTES % (AUTO) 6.4 % (2.0-9.0); NEUTROPHILS # (AUTO) 3.7 K/uL (1.8-7.7); NEUTROPHILS % (AUTO) 47.5 % (40.0-70.0); PLATELET COUNT (AUTO) 274 K/uL (150-450); RED BLOOD CELL COUNT(AUTO) 3.77 MIL/uL (4.00-5.20); RED CELL DISTRIBUTION WIDTH 13.5 % (11.5-14.5); WHITE BLOOD COUNT (AUTO) 7.7 K/uL (4.5-11.0)
[2023-12-07 05:17] LABS: CALCIUM, TOTAL 9.3 mg/dL (8.8-10.5); CREATININE 2.07 mg/dL (0.60-1.30); POTASSIUM 4.3 mmol/L (3.5-5.1)
[2023-12-07] MEDS ORDERED: PERCT PO (05:55)
[2023-12-07] MEDS: KETOROLAC TROMETHAMINE 60 MG/2 ML VIAL IM ONE (06:11)
[2023-12-07] MEDS: OxyCODONE HCL/ACETAMINOPHEN 5-325 MG TABLET PO ONE (06:11)
[2023-12-07 09:30] VITALS: BP 124/82; PULSE 82; RESP 18; O2SAT 97
== END 2023-12-07 09:37 | disposition home or self-care (01) ==
LOC: EMS 03:51
DX: R25.2 Cramp and spasm (principal); F41.9 Anxiety disorder, unspecified; J44.9 Chronic obstructive pulmonary disease, unspecified; E11.9 Type 2 diabetes mellitus without complications; I11.0 Hypertensive heart disease with heart failure; I50.9 Heart failure, unspecified; N18.9 Chronic kidney disease, unspecified; F17.210 Nicotine dependence, cigarettes, uncomplicated; Z88.1 Allergy status to other antibiotic agents; Z88.3 Allergy status to other anti-infective agents; Z79.4 Long term (current) use of insulin
CPT/HCPCS: 99284; 80048; 85025; 36415; 96372; J1170; J1885; J2405